=== PATIENT | female | born 1975 | race African-American/Black ===

== ENCOUNTER 2018-12-14 20:52 | Emergency (ER) | payer OTHER | END 2018-12-14 21:46 | disposition home or self-care (01) | LOC: FTE 20:52 | DX: S80.862A Insect bite (nonvenomous), left lower leg, initial encounter (principal); S80.861A Insect bite (nonvenomous), right lower leg, initial encounter; W57.XXXA Bitten or stung by nonvenomous insect and other nonvenomous arthropods, initial encounter; Y92.9 Unspecified place or not applicable | CPT/HCPCS: 99283; Z7502 ==